=== PATIENT | female | born 1960 | race Caucasian/White ===

== ENCOUNTER → 2016-03-06 | Outpatient (CLI) | payer OTHER ==
[~2016-03-06] MED LIST: ACET-1257 PO; CGN1 PO; ERGO1CAP35 PO; FLUO20CA35 PO; GLC/500 PO; INSDGI SC; LAMO100T16 PO; RISP2TAB3 PO
--- NOTE | 2016-03-06 14:23 | DIAGNOSTIC IMAGING REPORT ---
CHEST 2 VIEWS ROUTINE CLINICAL HISTORY: COUGH COMPARISON STUDY: No previous studies for comparison. FINDINGS: The heart is mildly enlarged. There is mild central vascular/interstitial prominence, a finding which may be accentuated by the patient's large body habitus.. There is no lobar consolidation. There are no pleural effusions. The study is mildly limited from a technical standpoint due to the patient's large body habitus.[ IMPRESSION: No evidence of focal pulmonary consolidation Electronically signed by: Tejinder Hensley M.D. 03/06/2016 2:21 PM Dictated Date/Time: 03/06/2016 2:20 PM
== END | disposition home or self-care (01) ==
LOC: C.RADPV 13:49
PROVIDERS: ATTEND Nurse Practitioner Family
DX: R05 Cough (principal)

== ENCOUNTER → 2016-08-01 | Outpatient (CLI) | payer OTHER ==
[~2016-08-01] MED LIST changes: +BENZ-89 PO; -CGN1 PO
[2016-08-01 12:31] LABS: ESTIMATED AVERAGE GLUCOSE 131 mg/dl; HA1C FLAG Normal (Normal)
[2016-08-01 13:26] LABS: ALT/SGPT 16 U/L (12-78); AST/SGOT 21 U/L (15-37); BLOOD UREA NITROGEN 13 mg/dl (7-18); BUN/CREATININE RATIO 17.2 (10-20); CALCIUM 8.1 mg/dl (8.5-10.1); CARBON DIOXIDE 29 mmol/L (21-32); CHLORIDE 109 mmol/L (98-107); CREATININE 0.75 mg/dl (0.60-1.20); GLUCOSE 83 mg/dl (70-99); POTASSIUM 4.4 mmol/L (3.5-5.1); SODIUM 145 mmol/L (136-145)
[2016-08-01 13:29] LABS: ALB/GLOB RATIO 0.8 (0.9-2); ALKALINE PHOSPHATASE 61 U/L (45-117); CHOLESTEROL 123 mg/dl (0-200); CHOLESTEROL/HDL RATIO 4.7; HDL CHOLESTEROL 26 mg/dl; LDL CHOLESTEROL CALCULATED 63 mg/dl; TRIGLYCERIDES 172 mg/dl (0-150); VERY LOW DENSITY LIPOPROT CALC 34 mg/dl
== END | disposition home or self-care (01) ==
LOC: C.LABSALHI 13:37
PROVIDERS: ATTEND Nurse Practitioner Family
DX: E11.9 Type 2 diabetes mellitus without complications (principal); E55.9 Vitamin D deficiency, unspecified

== ENCOUNTER → 2016-11-29 | Outpatient (CLI) | payer OTHER ==
[~2016-11-29] MED LIST changes: -BENZ-89 PO; +CGN1 PO
== END | disposition home or self-care (01) ==
LOC: C.PATHSPEC 17:50
PROVIDERS: ATTEND Obstetrics & Gynecology
DX: N85.00 Endometrial hyperplasia, unspecified (principal); N95.0 Postmenopausal bleeding; N84.1 Polyp of cervix uteri

== ENCOUNTER → 2017-01-30 | Outpatient (CLI) | payer OTHER ==
[~2017-01-30] MED LIST changes: +BENZ-89 PO; -CGN1 PO
[2017-01-30 12:51] LABS: ALT/SGPT 18 U/L (12-78); AST/SGOT 21 U/L (15-37); BLOOD UREA NITROGEN 13 mg/dl (7-18); BUN/CREATININE RATIO 15.2 (10-20); CALCIUM 8.1 mg/dl (8.5-10.1); CARBON DIOXIDE 28 mmol/L (21-32); CHLORIDE 107 mmol/L (98-107); CREATININE 0.86 mg/dl (0.60-1.20); GLUCOSE 78 mg/dl (70-99); SODIUM 140 mmol/L (136-145)
[2017-01-30 12:53] LABS: ESTIMATED AVERAGE GLUCOSE 134 mg/dl; HA1C FLAG Normal (Normal)
[2017-01-30 12:54] LABS: ALB/GLOB RATIO 0.7 (0.9-2); ALKALINE PHOSPHATASE 61 U/L (45-117); CHOLESTEROL 135 mg/dl (0-200); CHOLESTEROL/HDL RATIO 3.6; HDL CHOLESTEROL 38 mg/dl; LDL CHOLESTEROL CALCULATED 63 mg/dl; TRIGLYCERIDES 172 mg/dl (0-150); VERY LOW DENSITY LIPOPROT CALC 34 mg/dl
== END | disposition home or self-care (01) ==
LOC: C.LABSALHI 10:06
PROVIDERS: ATTEND Nurse Practitioner Family
DX: E11.9 Type 2 diabetes mellitus without complications (principal)